=== PATIENT | male | born 1995 | race Caucasian/White ===

== ENCOUNTER 2022-06-23 18:29 | Emergency (ER) | payer MEDICAID ==
[~2022-06-23] VITALS: Ht 172.7 cm; Wt 72.6 kg
[2022-06-23 19:43] VITALS: BP 127/64
--- NOTE | 2022-06-23 20:10 | NUR ---
INTERVIEWED PATIENT AT BEDSIDE, REPORTS ABDOMINAL PAIN, VOMITING SINCE NOON. PATIENT REPORTS THAT HE RECEIVED AN INJECTION OF VIVITROL AT HIS DOCTOR'S OFFICE TO HELP WITH ALCOHOL USE. PATIENT ALSO REPORTS POSSIBLE STOMACH ULCERS. DX: ADHD MEDS: OMEPRAZOLE, GUAFINESIN
[2022-06-23 20:12] LABS: BASOPHILS # (AUTO) 0.1 K/uL (0.00-0.22); BASOPHILS % (AUTO) 0.4 % (0.0-2.0); EOSINOPHILS % (AUTO) 0.1 % (0.0-4.0); HEMATOCRIT 42.6 % (36-52); HEMOGLOBIN 14.6 g/dL (12.0-18.0); LYMPHOCYTES # (AUTO) 1.2 K/uL (2.0-11.5); LYMPHOCYTES % (AUTO) 6.7 % (20.5-51.1); MEAN CORPUSCULAR HEMOGLOBIN 31 pg (27-31); MEAN CORPUSCULAR HGB CONC 34 g/dL (33-37); MEAN CORPUSCULAR VOLUME 90.1 fL (80-94); MONOCYTES % (AUTO) 5.5 % (1.7-9.3); NEUTROPHILS # (AUTO) 15.5 K/uL (1.8-7.7); NEUTROPHILS % (AUTO) 87.3 % (42.2-75.2); PLATELET COUNT (AUTO) 228 K/uL (140-450); RED BLOOD CELL COUNT(AUTO) 4.73 MIL/uL (4.20-6.10); RED CELL DISTRIBUTION WIDTH 13.9 % (11.6-13.7); WHITE BLOOD COUNT (AUTO) 17.7 K/uL (4.8-10.8)
[2022-06-23] MEDS ORDERED: KETOROLAC 15 MG/ML VIAL IVP ONE (20:15)
[2022-06-23] MEDS ORDERED: ONDANSETRON 4 MG/2 ML VIAL IVP ONE (20:15)
[2022-06-23 20:30] LABS: ALBUMIN 4.6 g/dL (3.4-5.0); ANION GAP 15.6 (8-16); CARBON DIOXIDE 26.8 mmol/L (21-32); CREATININE 1.1 mg/dL (0.6-1.3); POTASSIUM 3.4 mmol/L (3.5-5.1); TOTAL BILIRUBIN 0.7 mg/dL (0.0-1.0)
[2022-06-23] MEDS ORDERED: MORPHINE SULFATE 4 MG/ML SYR IVP ONE (21:35)
[2022-06-23] MEDS ORDERED: HYDR25CA1 PO (23:30)
[2022-06-23] MEDS ORDERED: ONDA-188 PO (23:30)
[2022-06-23] MEDS ORDERED: FAMO-90 PO (23:30)
--- NOTE | 2022-06-23 23:57 | NUR ---
Patient discharged with v/s stable. Written and verbal after care instructions given and explained. Patient alert, oriented and verbalized understanding of instructions. Ambulatory with steady gait. All questions addressed prior to discharge. ID band removed. Patient advised to follow up with PMD. Rx of FAMOTIDINE, HYDROXYZINE, AND ODANSETRON given. Patient educated on indication of medication including possible reaction and side effects. Opportunity to ask questions provided and answered. DX: NAUSEA AND VOMITING, GASTRITIS
== END 2022-06-24 | disposition home or self-care (01) ==
LOC: MED 18:29
DX: K29.20 Alcoholic gastritis without bleeding (principal); R11.2 Nausea with vomiting, unspecified; F12.90 Cannabis use, unspecified, uncomplicated; Z88.1 Allergy status to other antibiotic agents; Z79.899 Other long term (current) drug therapy
CPT/HCPCS: 36415; 74176; 80053; 83690; 85025; 96374; 96375; 99285; J1885; J2270; J2405